=== PATIENT | female | born 1960 | race Caucasian/White ===

== ENCOUNTER → 2018-03-07 | Outpatient (REF) | payer BC ==
[~2018-03-07] MED LIST: ADVI200T PO
== END ==
LOC: M LAB REF 18:20
PROVIDERS: ATTEND Obstetrics & Gynecology
DX: R35.0 Frequency of micturition (principal)

== ENCOUNTER → 2018-03-22 | Outpatient (CLI) | payer BC ==
[~2018-03-22] MED LIST changes: +IBUP80TA PO; +PERCOCET PO
--- NOTE | 2018-03-22 20:48 | ECGEPIP ---
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
== END ==
LOC: M EKG 15:52
PROVIDERS: ATTEND Anesthesiology
DX: Z01.818 Encounter for other preprocedural examination (principal)

== ENCOUNTER 2018-03-28 08:14 | Day surgery (SDC) | payer BC ==
[~2018-03-28] VITALS: Ht 167.6 cm; Wt 61.2 kg
[~2018-03-28 08:14] MED LIST changes: +ACETAMINOPHEN 650 MG SUPP PR ONE; -IBUP80TA PO; +LR 1,000 ML IV ONE; -PERCOCET PO
[2018-03-28 08:50] LABS: HEMATOCRIT 45.9 % (36.0-47.0); HEMOGLOBIN 15.3 g/dl (12.0-15.5); MEAN CORPUSCULAR HEMOGLOBIN 30.2 pg (27.0-33.0); MEAN CORPUSCULAR HGB CONC 33.3 g/dl (32.0-36.5); MEAN CORPUSCULAR VOLUME 90.7 fl (80.0-96.0); PLATELET COUNT, AUTOMATED 386 10^3/uL (150-450); RED BLOOD COUNT 5.06 10^6/uL (4.00-5.40); WHITE BLOOD COUNT 13.6 10^3/uL (4.0-10.0)
[2018-03-28] MEDS ORDERED: ROCURONIUM BROMIDE 50 MG/5 ML VIAL As Ordered ONE ×2 (09:01→11:29)
[2018-03-28] MEDS ORDERED: LIDOCAINE 2% INJ 100 MG/5 ML SDV (FOR ANES.) As Ordered ONE (09:01)
[2018-03-28] MEDS ORDERED: dexameTHASONE 4 MG/ML 1ML VIAL (J1100) As Ordered ONE (09:01)
[2018-03-28] MEDS ORDERED: fentaNYL 250 MCG/5 ML INJECTION (J3010) As Ordered ONE (09:01)
[2018-03-28] MEDS ORDERED: ONDANSETRON 4MG/2ML VIAL (J2405) As Ordered ONE (09:01)
[2018-03-28] MEDS ORDERED: PROPOFOL 200 MG/20 ML VIAL As Ordered ONE (09:01)
[2018-03-28] MEDS ORDERED: MIDAZOLAM INJ 2 MG/2 ML VIAL (J2250) As Ordered ONE (09:02)
[2018-03-28 09:05] LABS: BLOOD UREA NITROGEN 8 MG/DL (7-18); CALCIUM LEVEL 8.6 MG/DL (8.5-10.1); CARBON DIOXIDE LEVEL 29 MEQ/L (21-32); CHLORIDE LEVEL 106 MEQ/L (98-107); GLOMERULAR FILTRATION RATE > 60.0 (>51); GLUCOSE, FASTING 105 MG/DL (70-100); POTASSIUM SERUM 4.2 MEQ/L (3.5-5.1); SODIUM LEVEL 140 MEQ/L (136-145)
[2018-03-28] MEDS ORDERED: IBUP80TA PO (09:41)
[2018-03-28] MEDS ORDERED: PERCOCET PO (09:41)
[2018-03-28] MEDS ORDERED: ACETAMINOPHEN 650 MG SUPP As Ordered ONE (10:15)
[2018-03-28] MEDS ORDERED: FLUORESCEIN 10% (100MG/ML) 5 ML VIAL As Ordered ONE (10:26)
[2018-03-28] MEDS ORDERED: PHENYLephrine HCL 500 MCG/5 ML (100MCG/ML) SYRINGE (J2370) As Ordered ONE (10:32)
[2018-03-28] MEDS ORDERED: GLYCOPYRROLATE INJ 0.2 MG/ML 2 ML VIAL As Ordered ONE (10:58)
[2018-03-28] MEDS ORDERED: METOCLOPRAMIDE INJ 10MG/2ML VIAL (J2765) As Ordered ONE (10:58)
[2018-03-28] MEDS ORDERED: HYDROmorphone HCL 2 MG/ML 1ML VIAL (J1170) As Ordered ONE (10:58)
[2018-03-28] MEDS ORDERED: NEOSTIGMINE 10 MG/10 ML VIAL (J2710) As Ordered ONE (10:58)
[2018-03-28] MEDS ORDERED: KETOROLAC 60 MG/2 ML VIAL (J1885) As Ordered ONE (11:12)
[2018-03-28] MEDS ORDERED: BUPIVACAINE/EPIN 0.25% 30 ML VIAL As Ordered ONE (13:00)
[2018-03-28] MEDS ORDERED: SUGAMMADEX SODIUM 500 MG/5 ML VIAL (BRIDION) As Ordered ONE (14:13)
[2018-03-28] MEDS ORDERED: fentaNYL 100 MCG/2 ML INJECTION (J3010) IV PRN (15:00)
[2018-03-28] MEDS ORDERED: LR 1,000 ML IV SCH (15:00)
[2018-03-28] MEDS ORDERED: PERCOCET 5MG/325MG TAB PO PRN ×2 (15:00→15:30)
[2018-03-28] MEDS ORDERED: HYDROMORPHONE HCL 0.5 MG/ 0.5 ML SYRINGE (J1170 PER 1) IV PRN (15:00)
[2018-03-28] MEDS ORDERED: ONDANSETRON 4MG/2ML VIAL (J2405) IV PRN (15:00)
--- NOTE | 2018-03-28 15:21 | RO ---
DATE OF PROCEDURE: 03/28/2018 Deana is a 57-year-old female with a history of incomplete uterovaginal prolapse, urinary and urinary incontinence. The patient is also has had two prior section and laparoscopies. At this point a decision was made to proceed with a robotic-assisted laparoscopic hysterectomy with removal of both tubes and ovaries and the sacrospinous vaginal vault mesh suspension. PREOPERATIVE DIAGNOSES: 1. Incomplete uterovaginal prolapse. 2. Urinary incontinence. 3. Multiple surgeries. POSTOPERATIVE DIAGNOSES 1. Incomplete uterovaginal prolapse. 2. Urinary incontinence. 3. Multiple surgeries. PROCEDURE: 1. Robotic-assisted supracervical hysterectomy. 2. Bilateral salpingo-oophorectomy. 3. Sacrocolpopexy 4. Cystoscopy. SURGEON: Dr. Sebastián Reyes. LOCOMOTIVE MECHANIC APPRENTICE: Shruthi Simpson PA-C ANESTHESIA: General. COMPLICATIONS: None. ESTIMATED BLOOD LOSS: Less than 100 mL. FINDINGS: A small atrophic uterus with scarring at the level of the lower uterine segment to the bladder. Normal appearing ovary and tube. Bilateral urethral jets noted with yellow dye coming out of them. No evidence of any bladder injury. DESCRIPTION OF PROCEDURE: After obtaining informed consent the patient was taken to the operating room where general anesthetic was found to be adequate. She was then draped and prepped usual sterile fashion in dorsal lithotomy position. At this point a HUMI 2 uterine manipulator was also placed on the bladder for drainage. We then turned our attention to the abdomen where a 10 mm infraumbilical incision was made using the Veress needle. The abdomen was insufflated with CO2 gas to approximately 3.5 liters and two left lateral port 8 mm ports were placed. One for robotic arm and the other for an assist port. On the right side two 8 mm left lateral ports were also placed, one for robotic arm one and the other for arm three. After proper placement of these trocars, the patient was placed in steep Trendelenburg. The robot was brought to the patient's right side in a 45 degrees angle and the robot was docked in usual fashion. At this point the vessel sealer was placed in arm one and the bipolar grasper placed in arm two with the progress grasper in arm three. I then un-scrubbed and went to the surgeon console to begin the surgery. Evaluation of the pelvis and abdomen was done with the above-noted findings. At this point, the infundibulopelvic ligament on the left was identified. This was cauterized and cut using the vessel sealer. The serial bites were taken to include the round ligament all way down to the uterine arteries. The anterior leaflet of the broad ligament was dissected. Attempt made at dissecting off the bladder off the lower uterine segment but the bladder was found to be pretty adherent to that area. At this point the uterine arteries were cauterized and cut. The opposite side was done in a similar fashion. The vessel sealer was then removed and using the EndoShears, the anterior leaflet of the broad ligament was dissected and the bladder was peeled off the lower portion of the uterus. The posterior aspect of the uterus was also dissected off. A supracervical hysterectomy was then performed. The uterus and bilateral fallopian tube was left in the pelvis for future removal. The peritoneum over the sacral promontory was dissected. The sacral promontory was identified. An area was clean for future anchoring of the mesh on the lateral side. The peritoneum was dissected all the way down to the uterosacral ligament. A tunnel was also performed. The posterior aspect of the peritoneum was dissected off into the perirectal space. The anterior aspect was dissected all way down to the bladder neck. At this point a wire mesh was introduced to the assist port and the posterior portion of the mesh was then anchored all the way down with a series of interrupted [id number] sutures of #2-0 [place]-Rc. The anterior aspect was also anchored down with approximately 8 to 10 interrupted sutures. The tail end of the wide mesh was then tunneled through the peritoneum and attached to the sacral promontory with three interrupted #2-0 [place]-Rc sutures. Proper tension of the mesh was found. We then close the peritoneum over the mesh using a 3-0 V-Loc suture. Pelvis copiously irrigated with normal saline and suctioned out. 1 mL of Furacin was given by the anesthesiologist to help assist with the cystoscopy. I then re-scrubbed and went to the patient's side, retrograde filled the bladder with approximately 250 mL of normal saline. A cystoscopy was performed bilateral urethral jets noted on both sides. No evidence of any bladder injury noted. At this point the catheter was replaced back in the bladder. We then turned our attention to the abdomen where a 5 mm scope was used and using the 10/12 mm Endobag was then introduced on that side and the uterus as well as the bilateral fallopian tubes and ovaries were placed in the Endobag. This bag was brought was brought out to the abdominal area in the uterus and both fallopian tubes and ovaries were removed. Pelvis copiously irrigated with normal saline and suctioned out. We then closed the robotic ports using 0 Vicryl on the fascia and #3-0 Vicryl in subcuticular fashion on the skin 0.25% Marcaine was placed for postoperative pain. The patient tolerated procedure well. She was then transferred to recovery room in stable condition.
[2018-03-28] MEDS: LR 1,000 ML IV SCH ×2 (15:30→19:34)
[2018-03-28 15:50] VITALS: BP 132/93
[2018-03-28 16:09] VITALS: BP 141/81
[2018-03-28 16:40] VITALS: BP 119/70
[2018-03-28 17:40] VITALS: BP 116/71
[2018-03-28 18:40] VITALS: BP 104/61
[2018-03-28] MEDS: SIMETHICONE 80 MG CHEW TAB PO SCH ×2 (19:33→23:20)
[2018-03-28] MEDS: IBUPROFEN 800 MG TAB PO SCH ×2 (19:34→23:20)
[2018-03-28 20:00] VITALS: BP 115/62
[2018-03-29] VITALS: BP 122/59
[2018-03-29 04:00] VITALS: BP 107/55
[2018-03-29] MEDS: IBUPROFEN 800 MG TAB PO SCH (05:00)
[2018-03-29] MEDS: SIMETHICONE 80 MG CHEW TAB PO SCH (05:00)
[2018-03-29 07:13] LABS: HEMATOCRIT 36.6 % (36.0-47.0); HEMOGLOBIN 12.3 g/dl (12.0-15.5); MEAN CORPUSCULAR HEMOGLOBIN 30.3 pg (27.0-33.0); MEAN CORPUSCULAR HGB CONC 33.6 g/dl (32.0-36.5); MEAN CORPUSCULAR VOLUME 90.1 fl (80.0-96.0); PLATELET COUNT, AUTOMATED 308 10^3/uL (150-450); RED BLOOD COUNT 4.06 10^6/uL (4.00-5.40); WHITE BLOOD COUNT 16.5 10^3/uL (4.0-10.0)
[2018-03-29 07:37] LABS: BLOOD UREA NITROGEN 11 MG/DL (7-18); CALCIUM LEVEL 7.8 MG/DL (8.5-10.1); CARBON DIOXIDE LEVEL 26 MEQ/L (21-32); CHLORIDE LEVEL 107 MEQ/L (98-107); GLOMERULAR FILTRATION RATE > 60.0 (>51); GLUCOSE, FASTING 96 MG/DL (70-100); POTASSIUM SERUM 4.2 MEQ/L (3.5-5.1); SODIUM LEVEL 139 MEQ/L (136-145)
[2018-03-29 08:00] VITALS: BP 128/66
== END 2018-03-29 10:15 | disposition home or self-care (01) ==
LOC: M SDC 08:14 → M PED 15:30 → M SDC 03-29 10:15
PROVIDERS: ATTEND Obstetrics & Gynecology
DX: N81.2 Incomplete uterovaginal prolapse (principal); R32 Unspecified urinary incontinence; R10.2 Pelvic and perineal pain; K21.9 Gastro-esophageal reflux disease without esophagitis; Z78.0 Asymptomatic menopausal state; Z72.0 Tobacco use
CPT/HCPCS: 36415; 57425; 58571; 80048; 85027; 86850; 86900; 86901; 88305; C1781; J0690; J1100; J1170; J1885; J2250; J2370; J2405; J2765; J3010